=== PATIENT | female | born 1985 | race Caucasian/White ===

== ENCOUNTER 2021-03-09 15:15 | Emergency (ER) | payer OTHER, SELFPAY ==
--- NOTE | 2021-03-09 | ECG_ITS ---
Test Reason : CHEST PAIN Blood Pressure : / mmHG Vent. Rate : 058 BPM Atrial Rate : 058 BPM P-R Int : 142 ms QRS Dur : 080 ms QT Int : 386 ms P-R-T Axes : 065 055 024 degrees QTc Int : 378 ms Sinus bradycardia Otherwise normal ECG When compared with ECG of 12-OCT-2006 06:12, No significant change was found Referred By: Generic ED Physician Electronically Signed By:DELANEY LATIF
--- NOTE | ~2021-03-09 | XR_ITS ---
EXAMINATION: XR CHEST CLINICAL INFORMATION: Chest pain COMPARISON: None TECHNIQUE: Frontal view of the chest was obtained. FINDINGS: The lungs are clear. There is no pneumothorax or pleural reaction. The heart is normal in size. The vascularity is normal. The costophrenic sulci are well-defined. The hilar and mediastinal contours are normal. There is mild curvature thoracic spine. No visible acute bony abnormality. There are bilateral nipple piercings. XR/XR chest 1V IMPRESSION: Unremarkable examination.
[2021-03-09 15:22] VITALS: BP 119/77; PULSE 64; RESP 18; TEMP 36.6; O2SAT 98; BMI 23.1
[2021-03-09 15:41] VITALS: BP 116/73; PULSE 60; RESP 18; O2SAT 97
--- NOTE | 2021-03-09 15:44 | PC.NURSE ---
pt reports left sided chest pain that radiates to her left arm, some sob and frontal headache with no light noise sensitivity, pt does reports having headaches but not like this one, pt alert and oriented, skin appropriate for ethnicity, vs stable
--- NOTE | 2021-03-09 16:22 | ED_ITS ---
HPI - Chest Pain General Chief Complaint: Chest Pain Stated Complaint: Rt arm pain Time Seen by Provider: 03/09/21 16:22 Source: patient Mode of arrival: ambulatory History of Present Illness HPI narrative: 35-year-old female with no significant past medical history presenting to the ED complaining of intermittent substernal chest pain radiating down left arm and headache since yesterday. Admits to associated nausea. Denies chest pain at present. Denies fever, chills, cough, SOB, abdominal pain, LE edema, recent travel, COVID-19 exposure. Admits tested negative for COVID-19 today MD complaint: chest discomfort Timing of current episode: episodic Prior episodes: No Onset: during rest Pain location: substernal Pain radiation: left arm Severity: mild Related Data Allergies Allergy/AdvReac Type Severity Reaction Status Date / Time No Known Allergies Allergy Unverified 12/24/19 15:58 [No Known Allergies*] Review of Systems Review of Systems: Constitutional: No Fever, No Chills, No Fatigue, No Malaise ENT/Mouth: No Ear Pain, No Nasal Congestion, No sore throat, No Rhinorrhea, No Swallowing Difficulty Eyes: No Eye Pain, No Swelling, No Vision Changes Cardiovascular: + Chest Pain, No SOB, No Dyspnea on Exertion, No Edema, No Palpitations Respiratory: No Cough, No Sputum, No Dyspnea Gastrointestinal: + Nausea, No Vomiting, No Diarrhea, No Constipation, No Abdominal pain Genitourinary: No Dysuria, No Urinary Frequency, No Flank Pain Musculoskeletal: No joint pain, No Myalgias, No Joint Swelling Skin: No Skin Lesions, No rash Neuro: No Weakness, No Numbness, No Paresthesias, + Headache Yes all other systems are reviewed and are negative FOR[facility]LY [facility], [facility] Past Medical History Attestation statement: The following information was validated with the patient. Social History Social History Patient Tobacco Use Status: Former Tobacco user Use of substances other than those prescribed or required for medical reasons: No Advance Directives: No Advance Directives Information Provided: Yes Physical Exam Vital Signs: Vital Signs: Last Vital Signs Temp 98 F 03/09/21 15:22 Pulse 60 03/09/21 15:41 Resp 18 03/09/21 15:41 BP 116/73 03/09/21 15:41 Pulse Ox 97 03/09/21 15:41 BMI result Body Mass Index 23.1 Const: General: cooperative, healthy appearing, comfortable and no acute distress Orientation/consciousness: patient oriented x3 Limitations: no limitations HENMT: Head: Yes normal to inspection Ears: hearing grossly normal bilaterally General nose exam: Normal external nose present Face and sinus: Yes normal facial exam Eyes: General: appearance normal, both eyes and all related structures EOM: EOMs intact bilaterally Neck: Neck: Yes normal visual inspection and Yes no meningeal signs Resp: Effort & Inspection: normal respiratory effort Auscultation: clear to auscultation bilaterally, no rales, no rhonchi and no wheezes Cardio: Rate: regular rate Heart sounds: S1 normal heart sound present and S2 normal heart sound present GI: Inspection: Yes normal to inspection Palpation (GI): Soft to palpation, nontender, no guarding and not rigid Skin: Rashes: no rashes Wounds: no wounds Neuro: General: patient oriented x3 and no meningeal signs Gait exam (Neuro): Normal gait present Extrem: General: Yes normal to inspection, Yes no pedal edema and Yes no calf tenderness Course Course Course Narrative: -172. Labs unremarkable/no leukocytosis. Troponin negative XR chest 1V IMPRESSION: Unremarkable examination. >> results discussed with patient including worrisome signs and symptoms and strict return precautions and need follow-up with PCP. Patient verbalized understanding feel safe for discharge home at this time MDM - Chest Pain MDM Narrative Medical decision making narrative: 35-year-old female with no significant past medical history presenting to the ED complaining of intermittent substernal chest pain radiating down left arm and headache since yesterday. on exam vital signs stable, NAD/ nontoxic, lungs CTA, abdomen soft/nontender, no pedal edema/calf tenderness. Symptoms atypical for ACS or PE with intermittent nature. Concern for viral syndrome vs ?PNA. Unlikely pericarditis /myocarditis plan: EKG, labs, CXR, re-evaluate Differential Diagnosis Differential diagnosis: Likely atypical chest pain, costochondritis and chest pain Medical Records Data Attestation: I reviewed the patient's medical records. Lab Data Attestation: I reviewed the patient's lab results. Result diagrams: 03/09/21 16:55 03/09/21 16:55 Labs: Lab Results 03/09/21 03/09/21 03/09/21 Range/Units 16:55 16:55 16:55 WBC 8.0 (4.8-10.8) X10*3/uL RBC 3.95 L (4.20-5.50) X10*6/uL Hgb 11.7 L (12.0-16.0) g/dl Hct 37.0 (37.0-47.0) % MCV 93.7 (80.0-98.0) fL MCH 29.6 (27.0-33.0) pg MCHC 31.6 (31.0-35.0) g/dl RDW 12.2 (11.0-16.0) % Plt Count 218 (160-400) X10*3/uL MPV 10.8 (9.4-12.3) fL Immature Gran % (Auto) 0.4 (0.0-0.4) % Neut % (Auto) 60.6 (45-73) % Lymph % (Auto) 30.5 (20-40) % [place] % (Auto) 6.6 (2-11) % Eos % (Auto) 1.5 (0-4) % Baso % (Auto) 0.4 (0-2) % Lymph # (Auto) 2.4 (1.2-4.9) X10*3/uL [place] # (Auto) 0.5 (0.1-1.2) X10*3/uL Eos # (Auto) 0.1 (0.0-0.4) X10*3/uL Baso # (Auto) 0.0 (0.0-0.2) X10*3/uL Abs Immat Gran (auto) 0.03 (0.00-0.03) X10*3/uL Absolute Neuts (auto) 4.8 (2.0-8.3) x10*3/uL Absolute Nucleated RBC 0.000 (0.0-0.012) X10*3/uL Nucleated RBC % (auto) 0.0 (0.0-0.2) /100WBC Sodium 139 (135-145) mmol/L Potassium 4.3 (3.3-5.1) mmol/L Chloride 103 (96-108) mmol/L Carbon Dioxide 28 (22-29) mmol/L Anion Gap 12 (12-20) BUN 13 (9-16) mg/dL Creatinine 0.79 (0.5-1.4) mg/dL Estim Creat Clear Calc 85.0 Estimated GFR > 60 Random Glucose 103 (60-115) mg/dL Calcium 9.7 (8.4-10.2) mg/dL Troponin I High Sens < 3.5 (<3.5-17.0) ng/L ECG Data ECG #1: Attestation: I personally reviewed and interpreted this ECG as follows: ECG interpretation date: 03/09/21 ECG interpretation time: 15:28 Interpretation: EKG sinus bradycardia rate 58, LA 142, QTC 378. Nonischemic/no STEMI Discharge Plan Discharge Clinical Impression: Atypical chest pain Patient Disposition: Home, Self-Care Instructions: Chest Pain (ED) Additional Instructions: Your chest x-ray was unremarkable Your blood work was reassuring It is important you to follow-up with her primary care doctor/Cardiology as needed If symptoms persist or worsen/become more constant, if shortness of breath, fever please return to the emergency department Rest, stay hydrated Referrals: Physician,Unknown J [Primary Care Provider] - 2 days Melecio Perry MD [Physician] - 1 week (as needed)
[2021-03-09] MEDS: Ketorolac Tromethamine 30 MG/ML VIAL IM (16:39)
[2021-03-09] MEDS: Ondansetron ODT 4 MG TAB.RAPDIS TRANSLINGU (16:39)
[2021-03-09 16:58] LABS: MANUAL DIFF FLAG NO
[2021-03-09 16:59] LABS: Basophils Percent Auto 0.4 % (0-2); Eosinophils Absolute Auto 0.1 X10*3/uL (0.0-0.4); Eosinophils Percent Auto 1.5 % (0-4); Hemoglobin 11.7 g/dl (12.0-16.0); Imm Gran Abs Auto 0.03 X10*3/uL (0.00-0.03); Imm Gran Pct Auto 0.4 % (0.0-0.4); Lymphocytes Absolute Auto 2.4 X10*3/uL (1.2-4.9); Lymphocytes Percent Auto 30.5 % (20-40); Mean Corpuscular HGB Conc 31.6 g/dl (31.0-35.0); Mean Corpuscular Hemoglobin 29.6 pg (27.0-33.0); Mean Corpuscular Volume 93.7 fL (80.0-98.0); Mean Platelet Volume 10.8 fL (9.4-12.3); Monocytes Absolute Auto 0.5 X10*3/uL (0.1-1.2); Monocytes Percent Auto 6.6 % (2-11); Neutrophils Absolute Auto 4.8 x10*3/uL (2.0-8.3); Neutrophils Percent Auto 60.6 % (45-73); Platelet Count 218 X10*3/uL (160-400); Red Blood Count 3.95 X10*6/uL (4.20-5.50); Red Cell Distribution Width 12.2 % (11.0-16.0)
[2021-03-09 17:12] LABS: Anion Gap 12 (12-20); Blood Urea Nitrogen 13 mg/dL (9-16); Calcium 9.7 mg/dL (8.4-10.2); Carbon Dioxide 28 mmol/L (22-29); Chloride 103 mmol/L (96-108); Estimated Glomerular Filt Rate > 60; Glucose Random 103 mg/dL (60-115); Potassium 4.3 mmol/L (3.3-5.1); Sodium 139 mmol/L (135-145)
[2021-03-09 17:20] LABS: Troponin-I High Sensitivity < 3.5 ng/L (<3.5-17.0)
--- NOTE | 2021-03-09 18:00 | PC.NURSE ---
pt reports feeling better no pain at this time
== END 2021-03-09 18:13 | disposition home or self-care (01) ==
PROVIDERS: Physician Assistant; Emergency Provider Emergency Medicine Emergency Medical Services
DX: R07.89 Other chest pain (principal); R11.0 Nausea
CPT/HCPCS: 36415; 71045; 80048; 84484; 85025; 93005; 96372; 99284; J1885